=== PATIENT | female | born 1970 | race American Indian/Alaskan Native ===

== ENCOUNTER 2018-06-26 22:28 | Emergency (ER) | payer OTHER ==
[2018-06-26 22:38] VITALS: BP 107/42
[2018-06-26 23:15] LABS: Bilirubin,Urine NEG (Negative); Blood,Urine NEG (Negative); Color,Urine Yellow (Yellow); Mucus,Urine FEW /HPF; Urobilinogen,Urine < 2.0 mg/dL (<2.0)
--- NOTE | 2018-06-27 00:20 | Emergency Department Report ---
- General Chief Complaint: Upper Respiratory Infection Stated Complaint: COUGH/VAGINAL INFECTION Time Seen by Provider: 06/27/18 00:13 Source: patient Mode of arrival: Ambulatory Limitations: No Limitations - History of Present Illness MD Complaint: cough -: week(s) Severity: moderate - Related Data Home Medications Medication Instructions Recorded Confirmed Last Taken No Known Home Medications [No 10/10/13 10/10/13 Unknown Reported Home Medications] Allergies Allergy/AdvReac Type Severity Reaction Status Date / Time No Known Allergies Allergy Unverified 10/10/13 14:46 ED Review of Systems ROS: Stated complaint: COUGH/VAGINAL INFECTION Other details as noted in HPI Comment: All other systems reviewed and negative Constitutional: denies: chills, fever Respiratory: cough. denies: shortness of breath, SOB with exertion Cardiovascular: denies: chest pain, palpitations Gastrointestinal: denies: diarrhea, constipation, hematochezia Genitourinary: dysuria, dyspareunia. denies: frequency, hematuria, discharge, abnormal menses Musculoskeletal: denies: back pain Neurological: denies: headache, weakness ED Past Medical Hx - Past Medical History Previous Medical History?: No - Surgical History Past Surgical History?: No Additional Surgical History: gastric bypass 2006, breast reduction 2002,tubiligation - Social History Smoking Status: Never Smoker Substance Use Type: None - Medications Home Medications: Home Medications Medication Instructions Recorded Confirmed Last Taken Type No Known Home Medications [No 10/10/13 10/10/13 Unknown History Reported Home Medications] ED Physical Exam - General Limitations: No Limitations General appearance: alert, in no apparent distress - Head Head exam: Present: atraumatic, normocephalic, normal inspection - Eye Eye exam: Present: normal appearance - ENT ENT exam: Present: normal exam, normal orophraynx, mucous membranes moist - Neck Neck exam: Present: normal inspection, full ROM. Absent: tenderness, meningismus, lymphadenopathy, thyromegaly - Respiratory Respiratory exam: Present: normal lung sounds bilaterally. Absent: respiratory distress, wheezes, rales, rhonchi, chest wall tenderness - Cardiovascular Cardiovascular Exam: Present: regular rate, normal rhythm, normal heart sounds - GI/Abdominal GI/Abdominal exam: Present: soft, normal bowel sounds. Absent: distended, tenderness, guarding, rebound, rigid - Extremities Exam Extremities exam: Present: normal inspection, full ROM, normal capillary refill - Back Exam Back exam: Present: normal inspection, full ROM. Absent: tenderness, CVA tenderness (R), CVA tenderness (L), muscle spasm, paraspinal tenderness - Neurological Exam Neurological exam: Present: alert, oriented X3, CN II-XII intact - Skin Skin exam: Present: warm, intact ED Course Vital Signs 06/26/18 22:36 Temperature 98.2 F Pulse Rate 85 Respiratory 18 Rate Blood Pressure 107/42 O2 Sat by Pulse 100 Oximetry Critical care attestation.: If time is entered above; I have spent that time in minutes in the direct care of this critically ill patient, excluding procedure time. ED Disposition Clinical Impression: Acute bronchitis, Dysuria Disposition: - TO HOME OR SELFCARE Is pt being admited?: No Condition: Stable Instructions: Acute Bronchitis (ED) Referrals: RUBI CHARLES MD [Primary Care Provider] - 3-5 Days
== END 2018-06-27 00:47 | disposition home or self-care (01) ==
LOC: ED 22:28
DX: J20.9 Acute bronchitis, unspecified (principal)
CPT/HCPCS: 81001

== ENCOUNTER 2019-06-15 06:24 | Emergency (ER) | payer MEDICAID, OTHER ==
[2019-06-15] MEDS ORDERED: ASPIRIN 325 MG TAB PO ONE (06:35)
--- NOTE | 2019-06-15 07:09 | XRay Report ---
CHEST 1 VIEW INDICATION: Chest Pain. COMPARISON: None. FINDINGS: Support devices: None. Heart: Normal. Lungs/Pleura: No acute pulmonary or pleural findings. IMPRESSION: 1. No acute findings. Signer Name: Thiago Valdovinos MD Signed: 06/15/2019 7:04 AM Workstation Name: [id number]
[2019-06-15] MEDS ORDERED: FAMOTIDINE 20 MG TAB PO ONE (07:28)
[2019-06-15] MEDS ORDERED: ACETAMINOPHEN 325 MG TAB PO ONE (07:28)
--- NOTE | 2019-06-15 07:29 | Emergency Department Report ---
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 The patient is not known to myself previously. She has a primary care doctor but she cannot recall their name. She has distant past medical history of gastric bypass in 2006, breast reduction in 2002, and reports compliance with her post gastric bypass vitamins. She presents to the ER today with a primary complaint of headache. The headache is right-sided and throbbing. The headache is intermittent. The headache has been present since 5:00 in the morning. She gets frequent headaches. This feels like her prior episode of headache. The headache is not sudden or thunderclap in nature. The headache is not maximal in intensity. It is not described as the worst headache of her life. There is no recent trauma, chiropractic manipulation. There is no neck pain, abdominal pain, shortness of breath, extremity weakness and/or numbness. She reports that she is up-to-date with her glasses prescription. She does not spend a lot of time on the computer or on her cell phone, maybe 1 to 2 hours a day for work-related reasons. She does not take oral contraceptives, and she denies DVT and pulmonary embolism risk factors. She is taking Goody powders. Her headache is mostly improved at this time, with minimal intervention in the emergency room. She describes a secondary complaint of left-sided chest tightness. This is intermittent over the past few weeks. It does not radiate to the back, arms or neck. There is no vomiting or diaphoresis. The tightness is essentially resolved at this time. -: Gradual, week(s) Location: head, chest Quality: other Consistency: intermittent Improves with: none Worsens with: none - Related Data Previous Rx's Medication Instructions Recorded Last Taken Type Acetaminophen [Non-Aspirin Extra 500 mg PO Q6HR PRN #30 tablet 06/15/19 Unknown Rx Strength] Ibuprofen [Motrin] 600 mg PO Q8H PRN #30 tablet 06/15/19 Unknown Rx Metoclopramide [Reglan] 10 mg PO QID PRN #30 tablet 06/15/19 Unknown Rx Allergies Allergy/AdvReac Type Severity Reaction Status Date / Time No Known Allergies Allergy Verified 06/15/19 07:19 ED Review of Systems ROS: Stated complaint: HEADACHE CHEST PAIN Other details as noted in HPI Constitutional: denies: fever Eyes: denies: eye discharge, vision change ENT: denies: congestion Respiratory: denies: shortness of breath, wheezing Cardiovascular: as per HPI Gastrointestinal: denies: nausea, vomiting Genitourinary: denies: dysuria Musculoskeletal: as per HPI Skin: as per HPI Neurological: headache. denies: weakness Psychiatric: as per HPI Hematological/Lymphatic: denies: easy bleeding ED Past Medical Hx - Past Medical History Previous Medical History?: No - Surgical History Past Surgical History?: Yes Additional Surgical History: gastric bypass 2006, breast reduction 2002,tubiligation - Social History Smoking Status: Never Smoker Substance Use Type: None - Medications Home Medications: Home Medications Medication Instructions Recorded Confirmed Last Taken Type Acetaminophen [Non-Aspirin Extra 500 mg PO Q6HR PRN #30 tablet 06/15/19 Unknown Rx Strength] Ibuprofen [Motrin] 600 mg PO Q8H PRN #30 tablet 06/15/19 Unknown Rx Metoclopramide [Reglan] 10 mg PO QID PRN #30 tablet 06/15/19 Unknown Rx ED Physical Exam - General Limitations: No Limitations General appearance: alert, in no apparent distress - Head Head exam: Present: atraumatic, normocephalic - Eye Eye exam: Present: normal appearance, PERRL, EOMI, other (Visual acuity intact to finger counting, color perception, reading at a close distance). Absent: nystagmus - ENT ENT exam: Present: normal exam, normal orophraynx, mucous membranes moist, TM's normal bilaterally, normal external ear exam - Neck Neck exam: Present: normal inspection, full ROM. Absent: tenderness, meningismus - Respiratory Respiratory exam: Present: normal lung sounds bilaterally. Absent: respiratory distress - Cardiovascular Cardiovascular Exam: Present: regular rate, normal rhythm, normal heart sounds. Absent: bradycardia, tachycardia, irregular rhythm, systolic murmur, diastolic murmur, rubs, gallop - GI/Abdominal GI/Abdominal exam: Present: soft. Absent: distended, tenderness, guarding, rebound, rigid, pulsatile mass - Extremities Exam Extremities exam: Present: normal inspection, full ROM, other (2+ pulses noted in the bilateral upper and lower extremities. There is no palpable cord. negative Homans sign. Muscular compartments are soft. The pelvis is stable.). Absent: pedal edema, calf tenderness - Back Exam Back exam: Present: normal inspection, full ROM. Absent: tenderness, CVA tenderness (R), CVA tenderness (L), paraspinal tenderness, vertebral tenderness - Neurological Exam Neurological exam: Present: alert, oriented X3, normal gait, other (There is no facial droop. The tongue is midline. Extraocular movements are intact bilaterally. There is 5 out of 5 strength in bilateral upper and lower extremities. Sensation is intact to light touch bilateral upper and lower extremities. There is no past-pointing. There is no pronator drift. There is normal [id number]. There is a normal gait.). Absent: motor sensory deficit - Psychiatric Psychiatric exam: Present: normal affect, normal mood - Skin Skin exam: Present: warm, dry, intact, normal color. Absent: rash ED Course Vital Signs 06/15/19 06/15/19 07:43 08:09 Temperature 97.8 F Pulse Rate 66 66 Respiratory 15 17 Rate Blood Pressure 109/59 110/55 [Left] O2 Sat by Pulse 100 99 Oximetry ED Medical Decision Making - Lab Data Vital Signs - 24 hr 06/15/19 06/15/19 07:43 08:09 Temperature 97.8 F Pulse Rate 66 66 Respiratory 15 17 Rate Blood Pressure 109/59 110/55 [Left] O2 Sat by Pulse 100 99 Oximetry - EKG Data -: EKG Interpreted by Ct EKG shows normal: sinus rhythm, axis, intervals, QRS complexes, ST-T waves Rate: normal - EKG Data When compared to previous EKG there are: previous EKG unavailable Interpretation: no acute changes - Medical Decision Making Differential diagnosis, including but not limited to: Migraine headache, tension headache, cluster headache, headache etiology not otherwise specified, primary headache disorder, history of chest pain Assessment and plan: 48-year-old female, who is low risk by Wells criteria, not tachycardic, tachypneic or hypoxic, perc negative, who has a GCS of 15, with NIH score of 0, with an unremarkable and benign neurologic examination, with a primary complaint of intermittent headaches for weeks and months. She is afebrile with reassuring vital signs. She is pleasant, calm and cooperative. Her headache history does not include significant red flag signs or symptoms for dangerous secondary headaches. Her symptoms were treated supportively and symptomatically and she felt improved. She is not having chest pain at the moment. Her EKG is unremarkable at this time. She does not appear to have an emergent medical condition at this time. Critical care attestation.: If time is entered above; I have spent that time in minutes in the direct care of this critically ill patient, excluding procedure time. ED Disposition Clinical Impression: History of headache, History of chest pain Disposition: TO HOME OR SELFCARE Is pt being admited?: No Does the pt Need Aspirin: No Condition: Stable Additional Instructions: Please drink plenty of fluids. Make certain to get at least 8 hours of good quality uninterrupted sleep each night. Minimize utilization of computer, tablet, cellular phone, to essential work-related tasks. Please follow-up with a primary care doctor within the next 2 weeks. Return to the emergency room right away with new, worsened or different symptoms, or symptoms not present on the initial emergency room evaluation. Take medications as needed and directed. If taking ibuprofen, take it with food. Referrals: PRIMARY CARE, [Primary Care Provider] - 3-5 Days [facility] [Provider Group] - 7-10 days [facility] [Provider Group] - 7-10 days
[2019-06-15 09:11] VITALS: BP 108/60
== END 2019-06-15 09:11 | disposition home or self-care (01) ==
LOC: ED 06:24
DX: R51 Headache (principal); R07.89 Other chest pain; Z98.51 Tubal ligation status; Z98.890 Other specified postprocedural states; Z79.1 Long term (current) use of non-steroidal anti-inflammatories (NSAID); Z79.899 Other long term (current) drug therapy
CPT/HCPCS: 71045; 93005; 93010

== ENCOUNTER 2019-07-23 13:04 | Emergency (ER) | payer BC ==
[2019-07-23 13:21] VITALS: BP 126/85
--- NOTE | 2019-07-23 13:26 | Emergency Department Report ---
ED ENT HPI - General Chief complaint: Dental/Oral Stated complaint: TOOTH PAIN Time Seen by Provider: 07/23/19 13:22 Source: patient Mode of arrival: Ambulatory Limitations: No Limitations - History of Present Illness Initial comments: pt is a 49 yo female who presents to the ED with c/o right lower dental pain and swelling that began 5 days ago. she states that she previously had a cap on the tooth and fell off about 4-5 months ago. did not see a dentist at this time. she states that she last saw a dentist a year ago. she reports she attempted to go to the dentist but was not able to. she denies any PMHx. no allergies to meds. [facility] July 20, 2019. - Related Data Previous Rx's Medication Instructions Recorded Last Taken Type Acetaminophen [Non-Aspirin Extra 500 mg PO Q6HR PRN #30 tablet 06/15/19 Unknown Rx Strength] Ibuprofen [Motrin] 600 mg PO Q8H PRN #30 tablet 06/15/19 Unknown Rx Metoclopramide [Reglan] 10 mg PO QID PRN #30 tablet 06/15/19 Unknown Rx Clindamycin [Clindamycin CAP] 450 mg PO TID 7 Days #63 capsule 07/23/19 Unknown Rx Ibuprofen [Motrin 600 MG tab] 600 mg PO Q8H PRN #20 tablet 07/23/19 Unknown Rx Allergies Allergy/AdvReac Type Severity Reaction Status Date / Time No Known Allergies Allergy Verified 07/23/19 13:19 ED Dental HPI - General Chief complaint: Dental/Oral Stated complaint: TOOTH PAIN Time Seen by Provider: 07/23/19 13:22 Source: patient Mode of arrival: Ambulatory Limitations: No Limitations - Related Data Previous Rx's Medication Instructions Recorded Last Taken Type Acetaminophen [Non-Aspirin Extra 500 mg PO Q6HR PRN #30 tablet 06/15/19 Unknown Rx Strength] Ibuprofen [Motrin] 600 mg PO Q8H PRN #30 tablet 06/15/19 Unknown Rx Metoclopramide [Reglan] 10 mg PO QID PRN #30 tablet 06/15/19 Unknown Rx Clindamycin [Clindamycin CAP] 450 mg PO TID 7 Days #63 capsule 07/23/19 Unknown Rx Ibuprofen [Motrin 600 MG tab] 600 mg PO Q8H PRN #20 tablet 07/23/19 Unknown Rx Allergies Allergy/AdvReac Type Severity Reaction Status Date / Time No Known Allergies Allergy Verified 07/23/19 13:19 ED Review of Systems ROS: Stated complaint: TOOTH PAIN Other details as noted in HPI Comment: All other systems reviewed and negative ED Past Medical Hx - Past Medical History Previous Medical History?: No - Surgical History Past Surgical History?: Yes Additional Surgical History: gastric bypass 2006, breast reduction 2002,tubilig ation - Social History Smoking Status: Never Smoker Substance Use Type: None - Medications Home Medications: Home Medications Medication Instructions Recorded Confirmed Last Taken Type Acetaminophen [Non-Aspirin Extra 500 mg PO Q6HR PRN #30 tablet 06/15/19 Unknown Rx Strength] Ibuprofen [Motrin] 600 mg PO Q8H PRN #30 tablet 06/15/19 Unknown Rx Metoclopramide [Reglan] 10 mg PO QID PRN #30 tablet 06/15/19 Unknown Rx Clindamycin [Clindamycin CAP] 450 mg PO TID 7 Days #63 capsule 07/23/19 Unknown Rx Ibuprofen [Motrin 600 MG tab] 600 mg PO Q8H PRN #20 tablet 07/23/19 Unknown Rx ED Physical Exam - General Limitations: No Limitations General appearance: alert, in no apparent distress - Head Head exam: Present: atraumatic, normocephalic - Eye Eye exam: Present: normal appearance - ENT ENT exam: Present: normal orophraynx, mucous membranes moist, other (there is a cracked tooth with partial reminants on the right lower side, there is associated right lower gumline swelling, there is an area of induration present to the right lower jawline, no obvious fluctuance, uvula is midline, no uvular edema or deviation, no elevation of the tongue, no submandibular swelling, no trismus, no muffled voice) - Neurological Exam Neurological exam: Present: alert, oriented X3 - Psychiatric Psychiatric exam: Present: normal affect, normal mood - Skin Skin exam: Present: warm, dry, intact ED Course Vital Signs 07/23/19 13:21 Temperature 98.2 F Pulse Rate 77 Respiratory 16 Rate Blood Pressure 126/85 [Left] O2 Sat by Pulse 100 Oximetry ED Medical Decision Making - Medical Decision Making pt is a 49 yo female who presents to the ED with c/o right lower dental pain and swelling that began 5 days ago. she states that she previously had a cap on the tooth and fell off about 4-5 months ago. did not see a dentist at this time. she states that she last saw a dentist a year ago. she reports she attempted to go to the dentist but was not able to. she denies any PMHx. no allergies to meds. [facility] July 20, 2019. vitals are normal. on exam: there is a cracked tooth with partial reminants on the right lower side, there is associated right lower gumline swelling, there is an area of induration present to the right lower ja wline, no obvious fluctuance, uvula is midline, no uvular edema or deviation, no elevation of the tongue, no submandibular swelling, no trismus, no muffled voice. Examination consistent with dental caries and dental abscess causing small amount of facial cellulitis. Given prescription for clindamycin and ibuprofen. Advised patient please take medication as prescribed. take medication with food. follow up with a dentist. it is very important you follow up with a dentist for a permanent solution. return to the emergency room for any new or worsening symptoms. Critical care attestation.: If time is entered above; I have spent that time in minutes in the direct care of this critically ill patient, excluding procedure time. ED Disposition Clinical Impression: Dental abscess, Dental caries Disposition: TO HOME OR SELFCARE Is pt being admited?: No Does the pt Need Aspirin: No Condition: Stable Instructions: Dental Abscess (ED), Dental Caries (ED) Additional Instructions: please take medication as prescribed. take medication with food. follow up with a dentist. it is very important you follow up with a dentist for a permanent solution. return to the emergency room for any new or worsening symptoms. Prescriptions: Clindamycin [Clindamycin CAP] 450 mg PO TID 7 Days #63 capsule Ibuprofen [Motrin 600 MG tab] 600 mg PO Q8H PRN #20 tablet PRN Reason: Pain Referrals: [facility] [Outside] - 3-5 Days [facility] [Outside] - 3-5 Days Time of Disposition: 13:25 Print Language: HUNGARIAN
== END 2019-07-23 13:30 | disposition home or self-care (01) ==
LOC: ED 13:04
DX: K04.7 Periapical abscess without sinus (principal); K02.9 Dental caries, unspecified; Z98.51 Tubal ligation status
CPT/HCPCS: 99282

== ENCOUNTER 2021-01-09 14:38 | Emergency (ER) | payer SELFPAY ==
--- NOTE | 2021-01-09 16:03 | Emergency Department Report ---
HPI - General Chief Complaint: Arrhythmia/Palpitations Time Seen by Provider: 01/09/21 15:13 - HPI HPI: MSE 4 The patient is a 50-year-old female present with a chief complaint of palpitations. The patient states since yesterday she has had intermittent palpitations feeling as though her heart is beating quickly. The patient states it lasts for up to an hour at times. Patient denies chest pain but admits to shortness of breath with her palpitations. The patient states that she did feel as though she was having her palpitations here in the ED when her EKG was being performed. The patient admits to pleurisy. Patient denies nausea/vomiting or fever. Patient denies history of cough. The patient has been vaccinated against COVID-19 receiving her second [employer] vaccine in July. Patient also states for 1 months she has had suprapubic and right flank pain with dysuria. Patient denies hematuria. ED Past Medical Hx - Past Medical History Additional medical history: Anemia - Surgical History Additional Surgical History: gastric bypass 2006, breast reduction 2002,tubiligation - Family History Family history: no significant - Social History Smoking Status: Current Every Day Smoker (1 pack/day) Substance Use Type: None (Denies illicit drug use), Alcohol (Occasional) - Medications Home Medications: Home Medications Medication Instructions Recorded Confirmed Last Taken Type Acetaminophen [Non-Aspirin Extra 500 mg PO Q6HR PRN #30 tablet 06/15/19 Unknown Rx Strength] Ibuprofen [Motrin] 600 mg PO Q8H PRN #30 tablet 06/15/19 Unknown Rx Metoclopramide [Reglan] 10 mg PO QID PRN #30 tablet 06/15/19 Unknown Rx Clindamycin [Clindamycin CAP] 450 mg PO TID 7 Days #63 capsule 07/23/19 Unknown Rx Ibuprofen [Motrin 600 MG tab] 600 mg PO Q8H PRN #20 tablet 07/23/19 Unknown Rx ED Review of Systems ROS: Stated complaint: HEART PALPITATIONS Other details as noted in HPI Constitutional: denies: fever Eyes: denies: eye pain ENT: denies: throat pain Respiratory: shortness of breath Cardiovascular: palpitations. denies: chest pain Endocrine: no symptoms reported Gastrointestinal: denies: nausea, vomiting Genitourinary: dysuria. denies: hematuria Musculoskeletal: back pain Neurological: denies: headache Physical Exam - Physical Exam Vital Signs: Vital Signs 01/09/21 14:47 Temperature 98.7 F Pulse Rate 81 Respiratory 16 Rate Blood Pressure 120/69 [Right] O2 Sat by Pulse 100 Oximetry Physical Exam: GENERAL: The patient is well-developed well-nourished female lying on stretcher not appearing to be in acute distress. [] HEENT: Normocephalic. Atraumatic. Extraocular motions are intact. Patient has moist mucous membranes. NECK: Supple. Trachea midline CHEST/LUNGS: Clear to auscultation. There is no respiratory distress noted. HEART/CARDIOVASCULAR: Regular. There is no tachycardia. There is no gallop rub or murmur. ABDOMEN: Abdomen is soft, nontender. Patient has normal bowel sounds. There is no abdominal distention. SKIN: There is no rash. There is no edema. There is no diaphoresis. NEURO: The patient is awake, alert, and oriented. The patient is cooperative. The patient has no focal neurologic deficits. The patient has normal speech. GCS 15 MUSCULOSKELETAL: There is no slight right CVA tenderness. There is no evidence of acute injury. ED Course Vital Signs 01/09/21 14:47 Temperature 98.7 F Pulse Rate 81 Respiratory 16 Rate Blood Pressure 120/69 [Right] O2 Sat by Pulse 100 Oximetry ED Medical Decision Making - Lab Data Result diagrams: 01/09/21 15:55 Laboratory Tests 01/09/21 01/09/21 01/09/21 15:45 15:45 15:55 WBC 7.1 RBC 4.49 Hgb 11.2 Hct 35.4 MCV 79 MCH 25 L MCHC 32 RDW 22.9 H Plt Count 287 Lymph % (Auto) 36.1 H [place] % (Auto) 7.8 H Eos % (Auto) 1.0 Baso % (Auto) 0.5 Lymph # (Auto) 2.6 [place] # (Auto) 0.6 Eos # (Auto) 0.1 Baso # (Auto) 0.0 Seg Neutrophils % 54.6 Seg Neutrophils # 3.9 D-Dimer Sodium Potassium Chloride Carbon Dioxide Anion Gap BUN Creatinine Estimated GFR BUN/Creatinine Ratio Glucose Calcium Magnesium Total Bilirubin AST ALT Alkaline Phosphatase Total Creatine Kinase CK-MB (CK-2) CK-MB (CK-2) Rel Index Troponin T Total Protein Albumin Albumin/Globulin Ratio TSH Free T4 Urine Color Yellow Urine Turbidity Clear Urine pH 5.0 Ur Specific [place] 1.017 Urine Protein 100 mg/dl Urine Glucose (UA) Neg Urine Ketones Neg Urine Blood Neg Urine Nitrite Neg Urine Bilirubin Neg Urine Urobilinogen < 2.0 Ur Leukocyte Esterase Neg Urine WBC (Auto) 1.0 Urine RBC (Auto) 1.0 U Epithel Cells (Auto) 4.0 Urine Mucus Few Urine Opiates Screen Negative Urine Methadone Screen Negative Ur Barbiturates Screen Negative Ur Phencyclidine Scrn Negative Ur Amphetamines Screen Negative U Benzodiazepines Scrn Negative Urine Cocaine Screen Negative U Marijuana (THC) Screen Positive Drugs of Abuse Note Disclamer 01/09/21 01/09/21 01/09/21 15:55 15:55 15:55 WBC RBC Hgb Hct MCV MCH MCHC RDW Plt Count Lymph % (Auto) [place] % (Auto) Eos % (Auto) Baso % (Auto) Lymph # (Auto) [place] # (Auto) Eos # (Auto) Baso # (Auto) Seg Neutrophils % Seg Neutrophils # D-Dimer 179.10 Sodium 138 Potassium 3.9 Chloride 103.3 Carbon Dioxide 19 L Anion Gap 20 BUN 11 Creatinine 0.9 Estimated GFR > 60 BUN/Creatinine Ratio 12 Glucose 88 Calcium 9.3 Magnesium 1.90 Total Bilirubin 0.20 AST 30 ALT 27 Alkaline Phosphatase 100 Total Creatine Kinase 238 H CK-MB (CK-2) 2.7 CK-MB (CK-2) Rel Index 1.1 Troponin T < 0.010 Total Protein 7.7 Albumin 4.2 Albumin/Globulin Ratio 1.2 TSH 0.467 Free T4 0.66 L Urine Color Urine Turbidity Urine pH Ur Specific [place] Urine Protein Urine Glucose (UA) Urine Ketones Urine Blood Urine Nitrite Urine Bilirubin Urine Urobilinogen Ur Leukocyte Esterase Urine WBC (Auto) Urine RBC (Auto) U Epithel Cells (Auto) Urine Mucus Urine Opiates Screen Urine Methadone Screen Ur Barbiturates Screen Ur Phencyclidine Scrn Ur Amphetamines Screen U Benzodiazepines Scrn Urine Cocaine Screen U Marijuana (THC) Screen Drugs of Abuse Note - EKG Data -: EKG Interpreted by Me EKG shows normal: sinus rhythm Rate: normal (70 bpm) - EKG Data When compared to previous EKG there are: previous EKG unavailable Interpretation: other (No ischemic changes seen) - Radiology Data Radiology results: report reviewed (Chest x-ray, CT head), image reviewed (Chest x-ray, CT head) interpreted by me: Chest x-ray-no definite focal infiltrates, no pneumothorax [address] [address] XRay Report Signed Patient: PAMELA GUERRA I MR#: [id number] : Acct:[id number] Age/Sex: 50 / F ADM Date: 01/09/21 Loc: ED Attending Dr: Ordering Physician: RUSTAM TIWARI MD Date of Service: 01/09/21 Procedure(s): XR chest routine 2V Accession Number(s): [id number] cc: RUSTAM TIWARI MD Fluoro Time In Minutes: CHEST 2 VIEWS INDICATION / CLINICAL INFORMATION: Palpitations. COMPARISON: 06/15/19 FINDINGS: SUPPORT DEVICES: None. HEART / MEDIASTINUM: No significant abnormality. LUNGS / PLEURA: No significant pulmonary or pleural abnormality. No pneumothorax. ADDITIONAL FINDINGS: No significant additional findings. IMPRESSION: 1. No acute findings. Signer Name: Andrez Cespedes MD Signed: 01/09/2021 4:02 PM Workstation Name: [id number] Transcribed By: DT Dictated By: Elpidio Cespedes MD Electronically Authenticated By: Elpidio Cespedes MD Signed Date/Time: 01/09/21 160 DD/ 1601 TD/TT: Print Cancel [address] [address] Cat Scan Report Signed Patient: PAMELA GUERRA I MR#: [id number] : 1970 Acct:[id number] Age/Sex: 50 / F ADM Date: 01/09/21 Loc: ED Attending Dr: Ordering Physician: RUSTAM TIWARI MD Date of Service: 01/09/21 Pr ocedure(s): CT head/brain wo con Accession Number(s): [id number] cc: RUSTAM TIWARI MD CT head/brain wo con INDICATION: Lightheadedness. TECHNIQUE: Routine CT head without contrast. All CT scans at this location are performed using CT dose reduction for ALARA by means of automated exposure control. COMPARISON: None. FINDINGS: BRAIN / INTRACRANIAL CONTENTS: No acute hemorrhage, mass effect, midline shift, or hydrocephalus. No appreciable acute large territorial or lacunar infarct. No chronic infarct or focal atrophy. Normal brain volume and ventricular/sulcal size for age. ORBITS: No significant abnormality of visualized orbits. SINUSES / MASTOIDS: No significant abnormality of visualized sinuses and mastoid air cells. ADDITIONAL FINDINGS: None. IMPRESSION: 1. No acute intracranial abnormality. Signer Name: Boris Hurst MD Signed: 01/09/2021 5:33 PM Workstation Name: [id number] Transcribed By: CHAY Dictated By: Boris Hurst MD Electronically Authenticated By: Boris Hurst MD Signed Da te/Time: 01/09/211732 DD/ 31 TD/TT: Print Cancel - Differential Diagnosis Palpitations, dysrhythmia, SVT, anxiety, PE, pyelonephritis, UTI Critical care attestation.: If time is entered above; I have spent that time in minutes in the direct care of this critically ill patient, excluding procedure time. ED Disposition Clinical Impression: Palpitations Disposition: 01 HOME / SELF CARE / HOMELESS Is pt being admited?: No Does the pt Need Aspirin: No Condition: Stable Instructions: Palpitations, [id number], Ambulatory Cardiac Monitoring Additional Instructions: Return to the emergency department should you develop worsening symptoms, inability to tolerate food or liquids, high fever or any other concerns Referrals: MARCE SYKES MD [Staff Physician] - [facility] (Dr. Sykes is a innovations paraprofessional. Please follow-up with him for further evaluation) Time of Disposition: 18:07
--- NOTE | 2021-01-09 16:06 | XRay Report ---
CHEST 2 VIEWS INDICATION / CLINICAL INFORMATION: Palpitations. COMPARISON: 06/15/19 FINDINGS: SUPPORT DEVICES: None. HEART / MEDIASTINUM: No significant abnormality. LUNGS / PLEURA: No significant pulmonary or pleural abnormality. No pneumothorax. ADDITIONAL FINDINGS: No significant additional findings. IMPRESSION: 1. No acute findings. Signer Name: Andrez Cespedes MD Signed: 01/09/2021 4:02 PM Workstation Name: [id number]
[2021-01-09 16:07] LABS: Bilirubin,Urine NEG (Negative); Blood,Urine NEG (Negative); Color,Urine Yellow (Yellow); Mucus,Urine FEW /HPF; Urobilinogen,Urine < 2.0 mg/dL (<2.0)
[2021-01-09 16:10] LABS: Amphetamine Screen,Urine Negative; Benzodiazepines Screen,Urine Negative; Cocaine Screen,Urine Negative; Methadone Screen,Urine Negative; Opiate Screen,Urine Negative
[2021-01-09 16:36] LABS: Cannabinoid Screen,Urine Positive
[2021-01-09 16:36] LABS: Alanine Aminotransferase 27 units/L (7-56); Albumin 4.2 g/dL (3.9-5); BUN/Creatinine Ratio 12; Blood Urea Nitrogen 11 mg/dL (7-17); Calcium 9.3 mg/dL (8.4-10.2); Creatine Kinase MB 2.7 ng/mL (0.0-4.0); Hemolysis Index 4
[2021-01-09 16:43] LABS: Free T4 (Free Thyroxine) 0.66 ng/dL (0.76-1.46)
--- NOTE | 2021-01-09 17:37 | Cat Scan Report ---
CT head/brain wo con INDICATION: Lightheadedness. TECHNIQUE: Routine CT head without contrast. All CT scans at this location are performed using CT dos e reduction for ALARA by means of automated exposure control. COMPARISON: None. FINDINGS: BRAIN / INTRACRANIAL CONTENTS: No acute hemorrhage, mass effect, midline shift, or hydrocephalus. No appreciable acute large territorial or lacunar infarct. No chronic infarct or focal atrophy. Normal b rain volume and ventricular/sulcal size for age. ORBITS: No significant abnormality of visualized orbits. SINUSES / MASTOIDS: No significant abnormality of visualized sinuses and mastoid air cells. ADDITIONAL FINDINGS: None. IMPRESSION: 1. No acute intracranial abnormality. Signer Name: Boris Hurst MD Signed: 01/09/2021 5:33 PM Workstation Name: [id number]
[2021-01-09 17:58] LABS: Basophils % (Auto) 0.5 % (0.0-1.8); Eosinophils # (Auto) 0.1 K/mm3 (0.0-0.4); Hematocrit 35.4 % (30.3-42.9); Hemoglobin 11.2 gm/dl (10.1-14.3); Lymphocytes # (Auto) 2.6 K/mm3 (1.2-5.4); Lymphocytes % (Auto) 36.1 % (13.4-35.0); Mean Corpuscular HGB Conc 32 % (30-34); Mean Corpuscular Volume 79 fl (79-97); Monocytes # (Auto) 0.6 K/mm3 (0.0-0.8); Monocytes % (Auto) 7.8 % (0.0-7.3); Platelet Count 287 K/mm3 (140-440); Red Blood Count 4.49 M/mm3 (3.65-5.03)
[2021-01-09 18:06] LABS: Red Cell Distribution Width 22.9 % (13.2-15.2)
[2021-01-09 18:50] VITALS: BP 143/75
--- NOTE | 2021-01-10 12:27 | Electrocardiograph Report ---
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
== END 2021-01-09 18:17 | disposition home or self-care (01) ==
LOC: ED 14:38
DX: R00.2 Palpitations (principal); F17.200 Nicotine dependence, unspecified, uncomplicated; R51.9 Headache, unspecified; Z86.2 Personal history of diseases of the blood and blood-forming organs and certain disorders involving the immune mechanism; Z72.89 Other problems related to lifestyle; Z79.899 Other long term (current) drug therapy
CPT/HCPCS: 36415; 70450; 71046; 80053; 80307; 81001; 82550; 82553; 83735; 84439; 84443; 84484; 85025; 85379; 93005; 99284